=== PATIENT | female | born 1985 | race African-American/Black ===

== ENCOUNTER 2017-05-18 15:52 | Emergency (ER) | payer MEDICAID ==
[~2017-05-18] VITALS: Ht 160 cm; Wt 105.0 kg
[2017-05-18] MEDS ORDERED: PREDNISONE 20MG TABLET PO ONE (16:30)
[2017-05-18] MEDS ORDERED: IBUPROFEN 400MG TABLET PO ONE (16:30)
[2017-05-18] MEDS ORDERED: PENICILLIN G BENZATHINE 1,200,000 UNITS/2ML SYR IM ONE (20:00)
[2017-05-18] MEDS ORDERED: ACETAMINOPHEN 500MG TABLET PO ONE (20:00)
[2017-05-18 20:05] VITALS: BP 145/89
== END 2017-05-18 20:10 | disposition home or self-care (01) ==
LOC: ER 16:20
DX: J02.0 Streptococcal pharyngitis (principal); F12.10 Cannabis abuse, uncomplicated; Z90.49 Acquired absence of other specified parts of digestive tract
CPT/HCPCS: 81025; 87430; 96372; 99284; J0561; J7512

== ENCOUNTER 2017-08-18 06:47 | Emergency (ER) | payer SELFPAY ==
[~2017-08-18] VITALS: Ht 160 cm; Wt 105.0 kg
[2017-08-18 06:55] VITALS: BP 126/70
[2017-08-18 10:55] LABS: BASOPHILS % 0.5 % (0.0-2.0); EOSINOPHILS % 1.3 % (0.0-5.0); HEMATOCRIT. 29.5 % (36.0-48.0); HEMOGLOBIN. 9.8 g/dL (12.0-16.0); LYMPHOCYTES % 24.2 % (20.0-50.0); MEAN CORPUSCULAR HEMOGLOBIN 19.7 pg (28.0-32.0); MONOCYTES % 5.7 % (2.0-8.0); NEUTROPHILS % 68.3 % (40.0-76.0); RED BLOOD CELL COUNT 4.99 mill/uL (4.2-5.4); RED CELL DISTRIBUTION WIDTH 20.4 % (11.6-14.6)
[2017-08-18 11:02] LABS: CHLORIDE 108 mEq/L (98-107)
[2017-08-18 11:23] LABS: PLATELET ESTIMATE NORMAL
[2017-08-18 11:25] LABS: PLATELET 141 x1000/uL (130-400)
[2017-08-18 11:32] LABS: B-HCG QUANTITATIVE 21961 mIU/mL (<3)
== END 2017-08-18 12:06 | disposition home or self-care (01) ==
LOC: ER 07:47
DX: O20.0 Threatened abortion (principal); Z3A.15 15 weeks gestation of pregnancy; Z91.49 Other personal history of psychological trauma, not elsewhere classified
CPT/HCPCS: 36415; 76805; 80053; 84702; 85025; 86850; 86900; 99285

== ENCOUNTER 2017-09-27 04:32 | Observation (INO) | payer MEDICAID ==
[~2017-09-27] VITALS: Ht 160 cm; Wt 107.0 kg
[2017-09-27] MEDS ORDERED: PNV1TABL76 MT (05:22)
[2017-09-27] MEDS ORDERED: LACTATED RINGERS 1,000 ML IV NR (05:30)
== END 2017-09-27 07:00 | disposition home or self-care (01) ==
LOC: L&D 04:32
PROVIDERS: ADMIT Obstetrics & Gynecology; ATTEND Obstetrics & Gynecology
DX: O26.892 Other specified pregnancy related conditions, second trimester (principal); R10.30 Lower abdominal pain, unspecified; Z3A.22 22 weeks gestation of pregnancy
CPT/HCPCS: 82731; 96360; G0378; J7120

== ENCOUNTER 2018-01-30 17:36 | Emergency (ER) | payer MEDICAID ==
[~2018-01-30] VITALS: Ht 160 cm; Wt 100.0 kg
[~2018-01-30 17:36] MED LIST: PNV1TABL76 MT
[2018-01-30] MEDS ORDERED: IBUPROFEN 800MG TABLET PO ONE (18:15)
[2018-01-30] MEDS ORDERED: FAMOTIDINE 20MG TABLET PO ONE (18:15)
[2018-01-30] MEDS ORDERED: MAGNESIUM/ALUMINUM HYDROXIDE/SIMETHICONE 30ML UDC PO ONE (18:15)
[2018-01-30 19:49] LABS: BASOPHILS % 0.8 % (0.0-2.0); EOSINOPHILS % 0.8 % (0.0-5.0); HEMATOCRIT. 34.6 % (36.0-48.0); HEMOGLOBIN. 11.3 g/dL (12.0-16.0); LYMPHOCYTES % 31.1 % (20.0-50.0); MEAN CORPUSCULAR HEMOGLOBIN 19.4 pg (28.0-32.0); MEAN CORPUSCULAR VOLUME 59.4 fL (81.0-99.0); MEAN PLATELET VOLUME 9.6 fl (7.4-10.4); MONOCYTES % 6.5 % (2.0-8.0); NEUTROPHILS % 60.8 % (40.0-76.0); PLATELET 172 x1000/uL (130-400); RED BLOOD CELL COUNT 5.83 mill/uL (4.2-5.4); RED CELL DISTRIBUTION WIDTH 17.5 % (11.6-14.6)
[2018-01-30 19:54] LABS: CHLORIDE 108 mEq/L (98-107)
[2018-01-30 19:59] LABS: D-DIMER 0.65 mg/L FEU (<0.50); ETHANOL BLOOD < 10 mg/dL; INR 1.1; PARTIAL THROMBOPLASTIN TIME 29.2 sec (23.4-31.0); PROTHROMBIN TIME 11.3 sec (9.1-11.1)
[2018-01-30 20:03] LABS: CREATINE KINASE 60 IU/L (26-192)
[2018-01-30 20:05] LABS: CLARITY URINE TURBID (CLEAR); COLOR URINE ORANGE (YELLOW); KETONES URINE TRACE (NEGATIVE); LEUKOCYTE ESTERASE URINE 1+ (NEGATIVE); NITRITE URINE NEGATIVE (NEGATIVE); OCCULT BLOOD URINE 3+ (NEGATIVE); PROTEIN URINE 2+ (NEGATIVE); SPECIFIC GRAVITY URINE 1.026 (1.005-1.030); UROBILINOGEN URINE 0.2 E.U./dL (0.2-1.0)
[2018-01-30 20:06] LABS: HCG SCREEN NEGATIVE
[2018-01-30 20:49] LABS: *AMPHETAMINES SCREEN URINE NEGATIVE (NEGATIVE)
[2018-01-30 20:50] LABS: *BARBITURATES SCREEN URINE NEGATIVE (NEGATIVE); *BENZODIAZEPINES SCREEN URINE NEGATIVE (NEGATIVE); *COCAINE SCREEN URINE NEGATIVE (NEGATIVE); METHADONE URINE SCREEN NEGATIVE (NEGATIVE); OPIATES URINE SCREEN NEGATIVE (NEGATIVE); PHENCYCLIDINE URINE SCREEN NEGATIVE (NEGATIVE)
[2018-01-30 20:57] LABS: CANNABINOID URINE SCREEN PRESUMTIVE POSITIVE (NEGATIVE)
[2018-01-30 21:00] VITALS: BP 141/95
[2018-01-30 21:41] LABS: PLATELET ESTIMATE NORMAL
== END 2018-01-30 21:20 | disposition home or self-care (01) ==
LOC: ER 19:18
DX: M25.512 Pain in left shoulder (principal); N39.0 Urinary tract infection, site not specified; M54.10 Radiculopathy, site unspecified; F17.200 Nicotine dependence, unspecified, uncomplicated; F12.10 Cannabis abuse, uncomplicated
CPT/HCPCS: 36415; 71045; 73030; 80053; 80305; 81003; 81025; 82550; 83690; 83880; 84484; 84703; 85025; 85379; 85610; 85730; 93005; 99285; G0482; Z7610

== ENCOUNTER 2018-06-27 06:58 | Emergency (ER) | payer MEDICAID ==
[~2018-06-27] VITALS: Ht 162.6 cm; Wt 98.0 kg
[2018-06-27 07:45] VITALS: BP 122/83
[2018-06-27] MEDS ORDERED: KETOROLAC 30MG/ML VIAL IM ONE (08:00)
[2018-06-27] MEDS ORDERED: ALBUTEROL (0.083%) 2.5MG/3ML NEB HHN ONE (08:00)
== END 2018-06-27 09:28 | disposition home or self-care (01) ==
LOC: ER 07:43
DX: J02.8 Acute pharyngitis due to other specified organisms (principal); F12.10 Cannabis abuse, uncomplicated
CPT/HCPCS: 71045; 81025; 87804; 94640; 96372; 99284; J1885; J7611

== ENCOUNTER 2019-03-05 05:59 | Emergency (ER) | payer MEDICAID ==
[~2019-03-05] VITALS: Ht 160 cm; Wt 100.0 kg
[2019-03-05] MEDS ORDERED: METOCLOPRAMIDE HCL 10MG TABLET PO ONE (07:30)
[2019-03-05] MEDS ORDERED: KETOROLAC 60MG/2ML VIAL IM ONE (07:30)
[2019-03-05] MEDS ORDERED: DIPHENHYDRAMINE 25MG CAPSULE PO ONE (07:30)
[2019-03-05 10:23] VITALS: BP 137/86
== END 2019-03-05 10:38 | disposition home or self-care (01) ==
LOC: ER 05:59
DX: B34.9 Viral infection, unspecified (principal); R51 Headache; F12.10 Cannabis abuse, uncomplicated
CPT/HCPCS: 81025; 87804; 96372; 99283; J1885; J8597; Q0163

== ENCOUNTER 2023-01-30 12:49 | Day surgery (SDC) | payer MEDICAID, OTHER ==
[~2023-01-30] VITALS: Ht 170.2 cm; Wt 91.0 kg
[2023-01-30 12:55] VITALS: O2SAT 96
[2023-01-30] MEDS ORDERED: SODIUM CHLORIDE 0.9% 1,000 ML IV ONE (13:15)
[2023-01-30 14:02] VITALS: BP 135/79; PULSE 79; RESP 16; TEMP 97
[2023-01-30 16:14] LABS: BASOPHILS % 0.4 % (0.0-2.0); EOSINOPHILS % 0.6 % (0.0-5.0); HEMATOCRIT. 28.2 % (36.0-48.0); HEMOGLOBIN. 9.1 g/dL (12.0-16.0); LYMPHOCYTES % 19.4 % (20.0-50.0); MEAN CORPUSCULAR HEMOGLOBIN 20.1 pg (28.0-32.0); MEAN CORPUSCULAR HGB CONC 32.3 g/dL (31.0-37.0); MEAN CORPUSCULAR VOLUME 62.2 fL (81.0-99.0); MEAN PLATELET VOLUME 9.8 fl (7.4-10.4); MONOCYTES % 5.6 % (2.0-8.0); PLATELET 155 x1000/uL (130-400); RED BLOOD CELL COUNT 4.53 mill/uL (4.2-5.4); RED CELL DISTRIBUTION WIDTH 17.2 % (11.6-14.6); WHITE BLOOD COUNT 8.2 x1000/uL (4.5-11.0)
[2023-01-30 16:17] LABS: DIFFERENTIAL COMMENT 1
[2023-01-30 16:18] LABS: ADD RBC MORPHOLOGY YES
[2023-01-30 16:24] LABS: CHLORIDE 113 mEq/L (98-107); INDEX HEMOLYSI 1 (1-3); INDEX ICTERIC 1 (1-4); INDEX LIPEMIC 1 (1-3); POTASSIUM 3.3 mEq/L (3.5-5.1); SODIUM 136 mEq/L (136-145)
[2023-01-30 16:44] LABS: ALANINE AMINOTRANSFERASE 20 IU/L (13-61); ALBUMIN 2.9 g/dL (3.4-5.0); ASPARTATE AMINOTRANSFERASE 16 IU/L (15-37); B-HCG QUANTITATIVE 14348 mIU/mL (<3); BILIRUBIN TOTAL 0.6 mg/dL (0.1-1.0); CALCIUM 7.7 mg/dL (8.5-10.1); CARBON DIOXIDE 22 mEq/L (21-32); CREATININE 0.6 mg/dL (0.6-1.3); GLUCOSE 88 mg/dL (70-105); PROTEIN TOTAL 6.9 g/dL (6.0-8.3); UREA NITROGEN BLOOD 10 mg/dL (7-21)
[2023-01-30] MEDS ORDERED: DEXAMETHASONE 4MG/ML 1ML VIAL ONE (16:56)
[2023-01-30] MEDS ORDERED: MIDAZOLAM HCL 2 MG/2 ML VIAL ONE (16:56)
[2023-01-30] MEDS ORDERED: LIDOCAINE HCL 1% 20ML VIAL (Pyxis) INJ ONE (16:56)
[2023-01-30] MEDS ORDERED: CEFAZOLIN SODIUM 1000MG/VIAL ONE (16:56)
[2023-01-30] MEDS ORDERED: PROPOFOL 200MG/20ML VIAL IV ONE (16:56)
[2023-01-30] MEDS ORDERED: ONDANSETRON HCL 4MG/2ML INJ ONE (16:56)
[2023-01-30] MEDS ORDERED: FENTANYL CITRATE/PF 50MCG/ML 2ML VIAL ONE (16:56)
[2023-01-30] MEDS ORDERED: IBUPROFEN 400MG TABLET PO NR (17:45)
[2023-01-30 17:59] LABS: ANISOCYTOSIS 1+; HYPOCHROMASIA 2+; MICROCYTOSIS 3+; PLATELET ESTIMATE NORMAL
== END 2023-01-30 20:05 | disposition home or self-care (01) ==
LOC: ER 12:49 → OR 16:54 → ER 19:57 → OR 20:05
PROVIDERS: ATTEND Obstetrics & Gynecology
DX: O03.4 Incomplete spontaneous abortion without complication (principal); O03.1 Delayed or excessive hemorrhage following incomplete spontaneous abortion; E66.9 Obesity, unspecified; E11.9 Type 2 diabetes mellitus without complications; I10 Essential (primary) hypertension; Z90.49 Acquired absence of other specified parts of digestive tract; Z85.3 Personal history of malignant neoplasm of breast; Z3A.14 14 weeks gestation of pregnancy; Z79.899 Other long term (current) drug therapy; Z68.31 Body mass index [BMI] 31.0-31.9, adult
CPT/HCPCS: 59812; 80053; 84702; 85025; 86850; 86900; 86901; 36415; 88309; 88305; 76830; 76856; 99284; 96360; J3010; J0690; J1100; J3490; J2250; J2405; J2704; J7030